=== PATIENT | female | born 1975 | race Caucasian/White ===

== ENCOUNTER 2021-09-12 16:47 | Emergency (ER) | payer SELFPAY ==
[2021-09-12 16:58] VITALS: BP 152/83; PULSE 81; RESP 20; TEMP 36.3; O2SAT 95
--- NOTE | 2021-09-12 17:40 | ED.URI ---
HPI - URI/Sore Throat General Chief Complaint: Upper Respiratory Infection Stated Complaint: Sore Throat/Sinus Pain Time Seen by Provider: 09/12/21 17:40 Source: patient and RN notes reviewed Mode of arrival: ambulatory Limitations: no limitations History of Present Illness HPI Narrative: 45-year-old female presented for complaint of left throat pain for the last 4 days. She states it feels like something is stuck in her throat. She has had a history of salivary stones and it feels similar. She also endorses poor dentition. Also reports sinus pressure and congestion. She denies nausea, vomiting, cough, shortness of breath. She has not taken anything for symptoms. MD elicited complaint: cough Related Data Home Medications Medication Instructions Recorded Confirmed diazepam 5 mg PO BID PRN 09/12/21 09/12/21 diclofenac sodium 75 mg PO BID 09/12/21 09/12/21 gabapentin 100 mg PO TID 09/12/21 09/12/21 hydrocodone-acetaminophen See Rx Instructions .ROUTE 09/12/21 09/12/21 .COMPLEX PRN methimazole 10 mg PO DAILY 09/12/21 09/12/21 verapamil 80 mg PO BID 09/12/21 09/12/21 Allergies Allergy/AdvReac Type Severity Reaction Status Date / Time No Known Allergies Allergy Unverified 09/12/21 17:17 Review of Systems Review of Systems: CONSTITUTIONAL: Endorses malaise, chills, sweats, fever EYES: Denies visual changes, redness, or discharge ENT: Reports rhinorrhea, congestion, sinus pain, otalgia, sore throat CARDIOVASCULAR: Denies chest pain, palpitations, edema RESPIRATORY: Reports cough, post nasal drainage. Denies dyspnea GASTROINTESTINAL: Denies abdominal pain, nausea, vomiting, diarrhea SKIN: Denies rash or itching MUSCULOSKELETAL: Endorses myalgia NEUROLOGIC: Denies headache Exam Narrative: GENERAL: Ill-appearing, nontoxic HEAD: Normocephalic EYES: PERRLA, conjunctivae clear ENT: Mucous membranes moist. Teeth with multiple filling/cavities. TMs clear with normal light reflex. Pharynx erythematous without exudate or edema. No apparent salivary stone. no tragal tenderness. Oropharynx erythematous without lesions or exudate, no drooling, no hoarseness, no trismus, uvula midline. No tripod positioning, muffled voice, soft palate or pharyngeal wall bulging NECK: Supple. No lymphadenopathy CHEST: Clear to auscultation, breath sounds equal. No wheezing, rhonchi, rales, or stridor. No respiratory distress, speaks in full sentences. HEART: Regular rate and rhythm. No murmur heard. SKIN: Warm, dry, no rash. NEURO: Alert and oriented x3. PSYCH: Normal mood and affect Course Course Emergency Course: Patient is aware of diagnosis, understands and agrees to treatment plan. Anticipatory guidance given. Patient agrees to follow-up as directed and is aware of reasons to seek care at the emergency department. Portions of this record may have been created with voice recognition software Level of Care: Express Care Visit Vital Signs Vital signs: Vital Signs Temperature 97.4 F L 09/12/21 16:58 Pulse Rate 81 09/12/21 16:58 Respiratory Rate 20 09/12/21 16:58 Blood Pressure 152/83 H 09/12/21 16:58 Pulse Oximetry 95 09/12/21 16:58 Temperature 97.4 F L 09/12/21 16:58 Pulse Rate 81 09/12/21 16:58 Respiratory Rate 20 09/12/21 16:58 Blood Pressure 152/83 H 09/12/21 16:58 Pulse Oximetry 95 09/12/21 16:58 reviewed MDM - URI/Sore Throat MDM Narrative Medical decision making narrative: Strep negative. She is advised on supportive treatment and follow-up Differential Diagnosis Differential diagnosis: Likely upper respiratory infection, otitis media, sinusitis, viral infection and pharyngitis Lab Data Attestation: I reviewed the patient's lab results. Labs: Strep Screen Presumptive Negative *(Reference Range: Negative)* Discharge Plan Discharge Clinical Impression: Pharyngitis Qualifiers: Pharyngitis/tonsillitis etiology: unspecified etio
== END 2021-09-12 18:00 | disposition home or self-care (01) ==
PROVIDERS: Emergency Provider Nurse Practitioner Family
DX: J02.9 Acute pharyngitis, unspecified (principal)
CPT/HCPCS: 87081; 87880; 99203; G0463